=== PATIENT | male | born 1950 | race Caucasian/White ===

== ENCOUNTER 2023-05-02 08:10 | Outpatient (CLI) | payer MEDICARE ==
[2023-05-02 08:37] LABS: HEMOGLOBIN 11.2 g/dl (14.0-17.9); WHITE BLOOD COUNT 12.7 X10'3 (4.5-11.0)
[2023-05-02 08:38] LABS: MEAN PLATELET VOLUME 7.2 FL (7.4-10.4); PLATELET COUNT 227 X10'3 (140-440)
[2023-05-02 08:52] LABS: ALANINE AMINOTRANSFERASE 40 U/L (12-78); ALBUMIN 3.3 G/DL (3.4-5.0); ALBUMIN/GLOBULIN RATIO 1.1 (1.1-1.5); ALKALINE PHOSPHATASE 53 IU/L (46-116); ANION GAP 5 (8-16); ASPARTATE AMINO TRANSFERASE 23 U/L (10-37); BILIRUBIN,TOTAL 0.6 MG/DL (0.1-1.0); BLOOD UREA NITROGEN 22 MG/DL (7-18); BUN/CREATININE RATIO 19.1 (10.0-20.0); CALCIUM 8.8 MG/DL (8.5-10.1); CHLORIDE 104 MMOL/L (99-107); CREATININE 1.15 MG/DL (0.60-1.10); GLUCOSE 88 MG/DL (70-104); POTASSIUM 4.4 MMOL/L (3.5-5.1); SODIUM 137 MMOL/L (135-145); TOTAL CARBON DIOXIDE 28.1 MMOL/L (24-32); TOTAL PROTEIN 6.2 G/DL (6.4-8.2); eGFR 63 ML/MIN
[2023-05-02 08:56] LABS: APTT 34 SECONDS (22-32)
[2023-05-02 09:02] LABS: HEMATOCRIT 35.5 % (42.0-52.0); MEAN CORPUSCULAR HEMOGLOBIN 24.3 PG (27.0-31.0); MEAN CORPUSCULAR HGB CONC 31.5 g/dL (33.0-36.5); MEAN CORPUSCULAR VOLUME 77.1 FL (78-98); RED BLOOD COUNT 4.61 X10'6 (4.70-6.10)
[2023-05-02 09:03] LABS: RED CELL DISTRIBUTION WIDTH 26.6 % (11.5-14.5)
[2023-05-02] MEDS ORDERED: iohexol 350MG/ML 100ml bottle IV ONE (09:07)
[2023-05-02 09:10] LABS: PROTHROMBIN TIME 43.2 SECONDS (9.0-12.0)
[2023-05-02 09:19] LABS: INR 4.4 INR
[2023-05-02 10:05] LABS: TOTAL CELLS COUNTED 100
[2023-05-02 10:06] LABS: ANISOCYTOSIS 3+; HYPOCHROMASIA 2+; MICROCYTOSIS 1+; PLATELET ESTIMATE NORMAL; POLYCHROMASIA FEW; SCHISTOCYTES FEW
== END 2023-05-02 23:59 | disposition home or self-care (01) ==
LOC: RAD 08:10
PROVIDERS: ATTEND Student in an Organized Health Care Education/Training Program
DX: I25.10 Atherosclerotic heart disease of native coronary artery without angina pectoris (principal); I34.81 Nonrheumatic mitral (valve) annulus calcification; M47.9 Spondylosis, unspecified; I48.91 Unspecified atrial fibrillation; I48.92 Unspecified atrial flutter; L92.8 Other granulomatous disorders of the skin and subcutaneous tissue
CPT/HCPCS: 36415; 75572; 80053; 85007; 85025; 85610; 85730; J3490; Q9967